=== PATIENT | female | born 1995 | race Two or more races ===

== ENCOUNTER 2024-05-01 21:26 | Emergency (ER) | payer MEDICAID, OTHER ==
[~2024-05-01] VITALS: Ht 152.4 cm; Wt 63.3 kg
[2024-05-01 22:10] VITALS: BP 127/92; PULSE 69; RESP 18; TEMP 97.2
[2024-05-01] MEDS ORDERED: ACET500T58 PO (23:19)
[2024-05-01] MEDS ORDERED: CLIN1CAP70 PO (23:19)
[2024-05-01 23:34] VITALS: O2SAT 98
== END 2024-05-01 23:50 | disposition home or self-care (01) ==
LOC: ER 21:26
DX: O90.89 Other complications of the puerperium, not elsewhere classified (principal); L03.311 Cellulitis of abdominal wall; Z98.890 Other specified postprocedural states; Z79.899 Other long term (current) drug therapy